=== PATIENT | female | born 2005 | race Caucasian/White ===

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

== ENCOUNTER → 2025-05-07 16:05 | Outpatient (CLI) | payer OTHER, SELFPAY | PROVIDERS: PCP Family Medicine; Visit Provider Chiropractor | DX: M54.50 Low back pain, unspecified (principal) | CPT/HCPCS: 87086 ==

== ENCOUNTER 2025-05-07 16:51 | Emergency (ER) | payer OTHER, SELFPAY ==
[2025-05-07] VITALS (18 sets, daily range): BP systolic 83–117; BP diastolic 49–75; PULSE 58–98; RESP 10–22; TEMP 36.9; O2SAT 96–100; BMI 19.7
--- NOTE | 2025-05-07 16:51 | EKG_ITS ---
[address] [address] [address], [place] [address] Test Date: 2025-05-07 Pat Name: Eleonora Figueredo Department: Room: Gender: Female Measurement Analyst: KAREN : 2005 Requested By: Order Number: [id number] Reading MD: Rommel Gooden Measurements Intervals [place] Rate: 67 P: 43 MO: 146 QRS: 81 QRSD: 82 T: 50 QT: 400 QTc: 422 Interpretive Statements Normal sinus rhythm Electronically Signed On 05-17-2025 13:43:29 PDT by Rommel Gooden
--- NOTE | 2025-05-07 16:51 | DI.RAD.S_ITS ---
PROCEDURE: XR CHEST 1V INDICATIONS: Chest Pain TECHNIQUE: One view of the chest was acquired. COMPARISON: None. FINDINGS: Surgical changes and devices: None. Lungs and pleura: Lungs are clear. No pleural effusions or pneumothorax. Mediastinum: Mediastinal contours appear normal. Heart size is normal. Bones and chest wall: No suspicious bony lesions. Overlying soft tissues appear unremarkable. IMPRESSION: No acute cardiopulmonary abnormality is seen. Dictated by: Nii Hamilton M.D. on 05/07/2025 at 16:35 Approved by: Nii Hamilton M.D. on 05/07/2025 at 16:35
[2025-05-07 17:11] LABS: Hematocrit 33.5 % (36-46); Hemoglobin 12.1 g/dL (12.0-16.0); Mean Corpuscular HGB Conc 36.0 % (30-36); Mean Corpuscular Hemoglobin 31.2 PG (26-34); Mean Corpuscular Volume 86.7 fL (80-100); Platelet Count 118 X10^3/uL (150-400)
[2025-05-07 17:13] LABS: Add Manual Diff / Slide Review YES
[2025-05-07] MEDS: ONDANSETRON 4 MG/2 ML INJ IV (17:15)
[2025-05-07 17:17] LABS: INR 1.3 (0.9-1.3); Prothrombin Time 14.3 SECONDS (9.4-12.5)
[2025-05-07 17:20] LABS: PTT Partial Thromboplastin Tim 30 SECONDS (25.1-36.5)
[2025-05-07 17:22] LABS: Alanine Aminotransferase 64 IU/L (<35); Albumin 3.6 g/dL (3.5-5.0); Albumin Globulin Ratio 1.4 (1.0-2.8); Alkaline Phosphatase 62 U/L (38-126); Blood Urea Nitrogen 10 mg/dL (7-17); Calcium 8.0 mg/dL (8.4-10.2); Carbon Dioxide 26 mmol/L (22-32); Chloride 106 mmol/L (98-107); Creatine Kinase 64 U/L (30-135); Estimated Glomerular Filt Rate > 60 mL/min (>60); Globulin 2.5 g/dL (1.7-4.1); Glucose 102 mg/dL (70-99); HEMOLYSIS < 15 (0-50); Lipase 37 U/L (23-300); Magnesium 1.9 mg/dL (1.6-2.3); Potassium 3.5 mmol/L (3.4-5.1); Sodium 137 mmol/L (137-145); Total Protein 6.1 g/dL (6.3-8.2)
[2025-05-07 17:28] LABS: Atypical Lymphocytes Percent 40.0 %; Band Neutrophils Percent 4.0 % (3-7); Basophils Percent Manual 1.0 % (0-1); Eosinophils Percent Manual 1.0 % (2-4); Lymphocytes Percent Manual 24.0 % (25-45); Monocytes Percent Manual 18.0 % (2-11); Neutrophils Absolute Manual 1776 /uL (3000-5900); Segmented Neutrophils Percent 12.0 % (38-70); Total Cells Counted 100
[2025-05-07 17:30] LABS: RBC Morphology Normal Morphology; Smudge Cells 2+
[2025-05-07 17:33] LABS: NT-proBNP (BNP-Adult 18+) 36 pg/mL (<125); Troponin I < 0.012 ng/mL (0.01-0.034)
--- NOTE | 2025-05-07 19:10 | PC.NURSE ---
Orthostatic vitals WNL. Pt reports feeling fine, no nausea noted.
--- NOTE | 2025-05-07 19:34 | ED_ITS ---
HPI - Syncope General Chief Complaint: Syncope Stated Complaint: Hypotension/Syncope Time Seen by Provider: 05/07/25 19:26 Source: patient and EMS Mode of arrival: EMS Limitations: no limitations History of Present Illness HPI narrative: 19-year-old female patient with a history of depression/anxiety and ADHD who was at the walk-in clinic today for having fever and decreased energy. Part of the workup revealed a ?UTI. ? However while she was there in waiting for results she became lightheaded and passed out briefly. No injury. Patient says she has had syncopal episodes several times in her life, up to 8 or 9. Sometimes this is when she has had her blood drawn or when she has been overheated. Currently feels slightly weak but otherwise no symptoms. She denies any URI or GI symptoms who she also had no bladder symptoms even though they did a urinalysis. Related Data Previous Rx's ?Medication ?Instructions ?Recorded dextroamphetamine-amphetamine ER 25 mg PO DAILY #30 ca ps 04/17/25 25 mg 24hr capsule,extend release escitalopram oxalate 20 mg tablet 20 mg PO DAILY #30 t abs 04/22/25 (Lexapro) Allergies Allergy/AdvReac Type Severity Reaction Status Date / Time milk (MILK) Allergy Mild Stomach Verified 05/07/25 16:06 ache and headache soy (SOY) Allergy Mild Stomach Verified 05/07/25 16:06 ache and headache Patient History Medical History (Updated 06/22/23 @ 13:22 by Vernell Guzmán MD) Attention deficit hyperactivity disorder (ADHD) Anxiety Social History (System 05/19/23 @ 14:43 by Shey Braxton) Smoking Status: Never smoker Smoking Status: Never smoker Exam Initial Vital Signs Initial Vital Signs: Vital Signs Temperature 98.4 F 05/07/25 16:56 Pulse Rate 63 05/07/25 16:56 Respiratory Rate 17 05/07/25 16:56 Blood Pressure 101/58 L 05/07/25 16:56 Pulse Oximetry 99 05/07/25 16:56 Oxygen Delivery Method Room Air 05/07/25 16:56 Course Orders Ordered: ED Orders 05/07/25 16:51 XR chest 1V Stat EKG-12 Lead Stat 05/07/25 17:00 Complete Blood Count AUTO DIFF Stat Comprehensive Metabolic Panel Stat Lipase Stat Magnesium Stat NT-proBNP (BNP-Adult 18+) Stat PTT Partial Thromboplastin Ramone Stat Pathologist Review (for CBC) Stat Prothrombin Time INR Stat Troponin & CK Cardiac Panel Stat 05/07/25 19:39 Urinalysis and Microscopic Stat Discontinued Medications Aspirin (Aspirin 81 Mg Chew Tab) 324 mg PO NOW ONE Stop: 05/07/25 16:52 Last Admin: 05/07/25 18:28 Dose: Not Given Documented By: Ondansetron HCl (Ondansetron 4 Mg/2 Ml Inj) 4 mg IV NOW ONE Stop: 05/07/25 17:13 Last Admin: 05/07/25 17:15 Dose: 4 mg Documented By: Vital Signs Vital signs: Vital Signs - 8 hr 05/07/25 16:56 05/07/25 17:00 05/07/25 17:01 Temperature 98.4 F Pulse Rate 63 66 Pulse Rate [Orthostatic Lying] Pulse Rate [Orthostatic Sitting] Pulse Rate [Orthostatic Standing] Respiratory Rate 17 15 Blood Pressure 101/58 L 101/58 L Blood Pressure [Orthostatic Lying] Blood Pressure [Orthostatic Sitting] Blood Pressure [Orthostatic Standing] Pulse Oximetry 99 Oxygen Delivery Method Room Air 05/07/25 17:01 05/07/25 17:08 05/07/25 17:08 Temperature Pulse Rate 65 66 Pulse Rate [Orthostatic Lying] Pulse Rate [Orthostatic Sitting] Pulse Rate [Orthostatic Standing] Respiratory Rate 10 L 11 L Blood Pressure 96/62 Blood Pressure [Orthostatic Lying] Blood Pressure [Orthostatic Sitting] Blood Pressure [Orthostatic Standing] Pulse Oximetry 100 Oxygen Delivery Method 05/07/25 17:11 05/07/25 17:11 05/07/25 17:19 Temperature Pulse Rate 58 L Pulse Rate [Orthostatic Lying] Pulse Rate [Orthostatic Sitting] Pulse Rate [Orthostatic Standing] Respiratory Rate 20 Blood Pressure 83/49 L 117/56 L Blood Pressure [Orthostatic Lying] Blood Pressure [Orthostatic Sitting] Blood Pressure [Orthostatic Standing] Pulse Oximetry 100 Oxygen Delivery Method 05/07/25 17:19 05/07/25 17:30 05/07/25 17:30 Temperature Pulse Rate 67 69 Pulse Rate [Orthostatic Lying] Pulse Rate [Orthostatic Sitting] Pulse Rate [Orthostatic Standing] Respiratory Rate 14 17 Blood Pressure 111/57 L Blood Pressure [Orthostatic Lying] Blood Pressure [Orthostatic Sitting] Blood Pressure [Orthostatic Standing] Pulse Oximetry 98 99 Oxygen Delivery Method Room Air 05/07/25 18:00 05/07/25 18:00 05/07/25 18:30 Temperature Pulse Rate 79 Pulse Rate [Orthostatic Lying] Pulse Rate [Orthostatic Sitting] Pulse Rate [Orthostatic Standing] Respiratory Rate 16 Blood Pressure 113/61 110/59 L Blood Pressure [Orthostatic Lying] Blood Pressure [Orthostatic Sitting] Blood Pressure [Orthostatic Standing] Pulse Oximetry 99 Oxygen Delivery Method 05/07/25 18:30 05/07/25 18:59 05/07/25 18:59 Temperature Pulse Rate 80 94 H Pulse Rate [Orthostatic Lying] Pulse Rate [Orthostatic Sitting] Pulse Rate [Orthostatic Standing] Respiratory Rate 19 20 Blood Pressure 107/61 Blood Pressure [Orthostatic Lying] Blood Pressure [Orthostatic Sitting] Blood Pressure [Orthostatic Standing] Pulse Oximetry 99 100 Oxygen Delivery Method 05/07/25 19:00 05/07/25 19:00 05/07/25 19:09 Temperature Pulse Rate 95 H Pulse Rate [Orthostatic Lying] 73 Pulse Rate [Orthostatic Sitting] 94 H Pulse Rate [Orthostatic Standing] 98 H Respiratory Rate 17 Blood Pressure 100/57 L Blood Pressure [Orthostatic Lying] 110/58 L Blood Pressure [Orthostatic Sitting] 107/59 L Blood Pressure [Orthostatic Standing] 100/56 L Pulse Oximetry 99 Oxygen Delivery Method 05/07/25 19:30 05/07/25 19:30 Temperature Pulse Rate 89 Pulse Rate [Orthostatic Lying] Pulse Rate [Orthostatic Sitting] Pulse Rate [Orthostatic Standing] Respiratory Rate 22 Blood Pressure 108/75 Blood Pressure [Orthostatic Lying] Blood Pressure [Orthostatic Sitting] Blood Pressure [Orthostatic Standing] Pulse Oximetry 99 Oxygen Delivery Method Room Air MDM - Syncope Lab Data 05/07/25 17:00 05/07/25 17:00 Labs: Lab Results 05/07/25 05/07/25 Range/Units 17:00 17:23 WBC 11.1 H (4.5-11.0) X10^3/uL RBC 3.87 L (4.0-5.2) X10^6/uL Hgb 12.1 (12.0-16.0) g/dL Hct 33.5 L (36-46) % MCV 86.7 (80-100) fL MCH 31.2 (26-34) PG MCHC 36.0 (30-36) % RDW 13.6 (11.6-14.8) % Plt Count 118 L (150-400) X10^3/uL Neut % (Auto) Not Reportable Lymph % (Auto) Not Reportable [place] % (Auto) Not Reportable Eos % (Auto) Not Reportable Baso % (Auto) Not Reportable Lymph # (Auto) Not Reportable [place] # (Auto) Not Reportable Baso # (Auto) Not Reportable Total Counted 100 Seg Neutrophils % 12.0 L (38-70) % Band Neutrophils % 4.0 (3-7) % Lymphocytes % (Manual) 24.0 L (25-45) % Atypical Lymphs % 40.0 H ( - 0) % Monocytes % (Manual) 18.0 H (2-11) % Eosinophils % (Manual) 1.0 L (2-4) % Basophils % (Manual) 1.0 (0-1) % Neutrophils # (Manual) 1776 L (0541-7477) /uL Smudge Cells 2+ H RBC Morphology Normal morphology PT 14.3 H (9.4-12.5) SECONDS INR 1.3 (0.9-1.3) APTT 30 (25.1-36.5) SECONDS Sodium 137 (137-145) mmol/L Potassium 3.5 (3.4-5.1) mmol/L Chloride 106 (98-107) mmol/L Carbon Dioxide 26 (22-32) mmol/L BUN 10 (7-17) mg/dL Creatinine 0.73 (0.52-1.04) mg/dL Estimated GFR > 60 (>60) mL/min BUN/Creatinine Ratio 13.7 (6-22) Glucose 102 H (70-99) mg/dL POC Whole Bld Glucose 91 (70-99) mg/dL Calcium 8.0 L (8.4-10.2) mg/dL Magnesium 1.9 (1.6-2.3) mg/dL Total Bilirubin 0.7 (0.2-1.3) mg/dL AST 63 H (14-36) IU/L ALT 64 H (<35) IU/L Alkaline Phosphatase 62 (38-126) U/L Total Creatine Kinase 64 (30-135) U/L Troponin I < 0.012 (0.01-0.034) ng/mL NT-Pro-B Natriuret Pep 36 (<125) pg/mL Total Protein 6.1 L (6.3-8.2) g/dL Albumin 3.6 (3.5-5.0) g/dL Globulin 2.5 (1.7-4.1) g/dL Albumin/Globulin Ratio 1.4 (1.0-2.8) Lipase 37 (23-300) U/L Point of Care Testing Glucose POC 91 Discharge Plan Departure Prescriptions: No Action dextroamphetamine-amphetamine 25 mg capsule,extended release 24hr 25 mg PO DAILY Qty: 30 0RF escitalopram oxalate [Lexapro] 20 mg tablet 20 mg PO DAILY Qty: 30 0RF Referrals: Vernell Guzmán MD [Primary Care Provider, Family Practice]
--- NOTE | 2025-05-07 19:42 | ED_ITS ---
HPI - Syncope General Chief Complaint: Syncope Stated Complaint: Hypotension/Syncope Time Seen by Provider: 05/07/25 19:26 Source: patient and EMS Mode of arrival: EMS Limitations: no limitations History of Present Illness HPI narrative: 19-year-old female patient with history of anxiety and ADHD who was at the walk- in clinic today being seen for fevers and was sitting in a chair and became lightheaded and then briefly passed out. No injury. She feels better now but slightly weak. She had no other complaint other than fevers over the last 2 days. She was told she had a UTI based on the test dated. She has had no bladder symptoms. No URI symptoms or gastrointestinal symptoms. Patient has had a few syncopal episodes in the past associated with having her blood drawn and being overheated. Related Data Previous Rx's ?Medication ?Instructions ?Recorded dextroamphetamine-amphetamine ER 25 mg PO DAILY #30 ca ps 04/17/25 25 mg 24hr capsule,extend release escitalopram oxalate 20 mg tablet 20 mg PO DAILY #30 t abs 04/22/25 (Lexapro) Allergies Allergy/AdvReac Type Severity Reaction Status Date / Time milk (MILK) Allergy Mild Stomach Verified 05/07/25 16:06 ache and headache soy (SOY) Allergy Mild Stomach Verified 05/07/25 16:06 ache and headache Review of Systems Review of Systems ROS Unobtainable: All systems reviewed & are unremarkable except as noted in HPI and below Patient History Medical History (Updated 05/07/25 @ 21:45 by Eddie Arriaga MD) Attention deficit hyperactivity disorder (ADHD) Anxiety Social History (System 05/19/23 @ 14:43 by Shey Braxton) Smoking Status: Never smoker Smoking Status: Never smoker Exam Initial Vital Signs Initial Vital Signs: Vital Signs Temperature 98.4 F 05/07/25 16:56 Pulse Rate 63 05/07/25 16:56 Respiratory Rate 17 05/07/25 16:56 Blood Pressure 101/58 L 05/07/25 16:56 Pulse Oximetry 99 05/07/25 16:56 Oxygen Delivery Method Room Air 05/07/25 16:56 Const General: cooperative, healthy appearing, comfortable and No acute distress HENMT Head: normal to inspection and normocephalic Eyes Pupils: PERRL EOM: EOM intact bilaterally Neck Neck: normal visual inspection and full ROM Chest Chest: normal inspection of the chest and normal palpation of entire chest wall Resp Effort & Inspection: normal respiratory effort, able to speak in complete sentences and no respiratory distress Auscultation: clear to auscultation bilaterally Cardio Rate: regular rate Rhythm: regular rhythm GI Inspection: normal to inspection Palpation: soft and No tender Course Orders Ordered: ED Orders 05/07/25 20:45 Ictotest Urine Stat Urinalysis and Microscopic Stat Discontinued Medications Aspirin (Aspirin 81 Mg Chew Tab) 324 mg PO NOW ONE Stop: 05/07/25 16:52 Last Admin: 05/07/25 18:28 Dose: Not Given Documented By: Ondansetron HCl (Ondansetron 4 Mg/2 Ml Inj) 4 mg IV NOW ONE Stop: 05/07/25 17:13 Last Admin: 05/07/25 17:15 Dose: 4 mg Documented By: Vital Signs Vital signs: Vital Signs - 8 hr 05/07/25 18:59 05/07/25 18:59 05/07/25 19:00 Pulse Rate 94 H Pulse Rate [Orthostatic Lying] Pulse Rate [Orthostatic Sitting] Pulse Rate [Orthostatic Standing] Respiratory Rate 20 Blood Pressure 107/61 100/57 L Blood Pressure [Orthostatic Lying] Blood Pressure [Orthostatic Sitting] Blood Pressure [Orthostatic Standing] Pulse Oximetry 100 Oxygen Delivery Method 05/07/25 19:00 05/07/25 19:09 05/07/25 19:30 Pulse Rate 95 H Pulse Rate [Orthostatic Lying] 73 Pulse Rate [Orthostatic Sitting] 94 H Pulse Rate [Orthostatic Standing] 98 H Respiratory Rate 17 Blood Pressure 108/75 Blood Pressure [Orthostatic Lying] 110/58 L Blood Pressure [Orthostatic Sitting] 107/59 L Blood Pressure [Orthostatic Standing] 100/56 L Pulse Oximetry 99 Oxygen Delivery Method 05/07/25 19:30 05/07/25 20:01 05/07/25 20:30 Pulse Rate 89 Pulse Rate [Orthostatic Lying] Pulse Rate [Orthostatic Sitting] Pulse Rate [Orthostatic Standing] Respiratory Rate 22 Blood Pressure 107/57 L Blood Pressure [Orthostatic Lying] Blood Pressure [Orthostatic Sitting] Blood Pressure [Orthostatic Standing] Pulse Oximetry 99 96 Oxygen Delivery Method Room Air 05/07/25 20:30 05/07/25 21:00 05/07/25 21:00 Pulse Rate 80 80 Pulse Rate [Orthostatic Lying] Pulse Rate [Orthostatic Sitting] Pulse Rate [Orthostatic Standing] Respiratory Rate 18 19 Blood Pressure 107/59 L Blood Pressure [Orthostatic Lying] Blood Pressure [Orthostatic Sitting] Blood Pressure [Orthostatic Standing] Pulse Oximetry 100 98 Oxygen Delivery Method Room Air 05/07/25 21:30 05/07/25 21:30 05/07/25 21:53 Pulse Rate 77 69 Pulse Rate [Orthostatic Lying] Pulse Rate [Orthostatic Sitting] Pulse Rate [Orthostatic Standing] Respiratory Rate 17 16 Blood Pressure 96/53 L 98/53 L Blood Pressure [Orthostatic Lying] Blood Pressure [Orthostatic Sitting] Blood Pressure [Orthostatic Standing] Pulse Oximetry 98 98 Oxygen Delivery Method Room Air MDM - Syncope Lab Data Attestation: I reviewed the patient's lab results. Lab results narrative: CBC and chemistry panel unremarkable. Full urinalysis is not consistent with UTI. 05/07/25 17:00 05/07/25 17:00 Labs: Lab Results 05/07/25 05/07/25 05/07/25 Range/Units 17:00 17:23 20:45 WBC 11.1 H (4.5-11.0) X10^3/uL RBC 3.87 L (4.0-5.2) X10^6/uL Hgb 12.1 (12.0-16.0) g/dL Hct 33.5 L (36-46) % MCV 86.7 (80-100) fL MCH 31.2 (26-34) PG MCHC 36.0 (30-36) % RDW 13.6 (11.6-14.8) % Plt Count 118 L (150-400) X10^3/uL Neut % (Auto) Not Reportable Lymph % (Auto) Not Reportable [place] % (Auto) Not Reportable Eos % (Auto) Not Reportable Baso % (Auto) Not Reportable Lymph # (Auto) Not Reportable [place] # (Auto) Not Reportable Baso # (Auto) Not Reportable Total Counted 100 Seg Neutrophils % 12.0 L (38-70) % Band Neutrophils % 4.0 (3-7) % Lymphocytes % (Manual) 24.0 L (25-45) % Atypical Lymphs % 40.0 H ( - 0) % Monocytes % (Manual) 18.0 H (2-11) % Eosinophils % (Manual) 1.0 L (2-4) % Basophils % (Manual) 1.0 (0-1) % Neutrophils # (Manual) 1776 L (3064-1839) /uL Sm[place] Cells 2+ H RBC Morphology Normal morphology PT 14.3 H (9.4-12.5) SECONDS INR 1.3 (0.9-1.3) APTT 30 (25.1-36.5) SECONDS Sodium 137 (137-145) mmol/L Potassium 3.5 (3.4-5.1) mmol/L Chloride 106 (98-107) mmol/L Carbon Dioxide 26 (22-32) mmol/L BUN 10 (7-17) mg/dL Creatinine 0.73 (0.52-1.04) mg/dL Estimated GFR > 60 (>60) mL/min BUN/Creatinine Ratio 13.7 (6-22) Glucose 102 H (70-99) mg/dL POC Whole Bld Glucose 91 (70-99) mg/dL Calcium 8.0 L (8.4-10.2) mg/dL Magnesium 1.9 (1.6-2.3) mg/dL Total Bilirubin 0.7 (0.2-1.3) mg/dL AST 63 H (14-36) IU/L ALT 64 H (<35) IU/L Alkaline Phosphatase 62 (38-126) U/L Total Creatine Kinase 64 (30-135) U/L Troponin I < 0.012 (0.01-0.034) ng/mL NT-Pro-B Natriuret Pep 36 (<125) pg/mL Total Protein 6.1 L (6.3-8.2) g/dL Albumin 3.6 (3.5-5.0) g/dL Globulin 2.5 (1.7-4.1) g/dL Albumin/Globulin Ratio 1.4 (1.0-2.8) Lipase 37 (23-300) U/L Urine Color Yellow Urine Appearance Clear Urine pH 7.0 (4.5-8.0) Ur Specific [place] 1.015 (1.000-1.035) Urine Protein 1+ H (Negative) Urine Glucose (UA) Negative (Negative) g/dL Urine Ketones 3+ H (NEGATIVE) Urine Occult Blood Trace-intact (Negative) Urine Nitrate Negative (Negative) Urine Bilirubin 1+ H (NEGATIVE) Ur Bilirubin Confirm Negative (Negative) Urine Urobilinogen 4.0 H (0.2) E.U./dL Ur Leukocyte Esterase Negative (NEGATIVE) Urine RBC 0-1/hpf (0-5/HPF) Urine WBC 0-1/hpf (0-5/HPF) Ur Squamous Epith Cells 10-30 /hpf H (0-5/HPF) Urine Bacteria Few (2-10) H (None) Urine Mucus 1+ H (Negative) Ur Culture Indicated? Cult not indicated Vol Urine Centrifuged 10ml (spun) Point of Care Testing Glucose POC 91 MDM Narrative Medical decision making narrative: Patient had a brief syncopal episode in the doctor's office which is probably vasovagal syncope with no injury. She also has had a fever with no other symptoms which is probably a viral illness. Urinalysis with microscopic here in the ER is negative for UTI. Plan is hydration, rest and supportive care with [id number] medicines needed for fever or other symptoms of viral illness. Follow up with her doctor within the next week to 10 days regarding syncopal episodes and further workup that might be needed such as Cardiology referral. Discharge Plan Departure Patient Disposition: Home Clinical Impression: Vasovagal syncope, Viral illness Instructions: DI for Syncope in Adults (Fainting) Activity Restrictions/Additional Instructions: Assessment: 1. Probable vasovagal syncope 2. Probable viral illness with fever but no other symptoms. Does not appear to be UTI based on urinalysis in the ER. Lab work otherwise unremarkable and reassuring. Plan: Hydration, rest and supportive care with [id number] medicine as needed for symptoms such as ibuprofen and Tylenol for fever. Follow up with your doctor regarding syncopal episode along with previous syncopal episodes. May need further workup including possible cardiology consult. Return to the ER if worse Prescriptions: No Action dextroamphetamine-amphetamine 25 mg capsule,extended release 24hr 25 mg PO DAILY Qty: 30 0RF escitalopram oxalate [Lexapro] 20 mg tablet 20 mg PO DAILY Qty: 30 0RF Referrals: Vernell Guzmán MD [Primary Care Provider, [facility]] Stand Alone Forms: Patient Portal/API
--- NOTE | 2025-05-07 21:09 | PC.NURSE ---
Pt ambulatory to BR. Steady gait noted. Denies dizziness or feeling lightheaded. Urine sample obtained and sent to lab.
[2025-05-07 21:15] LABS: Appearance Urine UA CLEAR; Bilirubin Urine UA 1+ (NEGATIVE); Color Urine UA YELLOW; Glucose Urine UA NEGATIVE (Negative); Ketones Urine UA 3+ (NEGATIVE); Leukocyte Esterase Urine UA NEGATIVE (NEGATIVE); Nitrite Urine UA NEGATIVE (Negative); Occult Blood Urine UA TRACE-INTACT (Negative); Protein Urine UA 1+ (Negative); Specific Gravity Urine UA 1.015 (1.000-1.035); Urobilinogen Urine UA 4.0 E.U./dL (0.2)
[2025-05-07 21:25] LABS: Ictotest Urine Negative (Negative); pH Urine UA 7.0 (4.5-8.0)
[2025-05-07 21:26] LABS: Culture Indicated Urine Cult Not Indicated
== END 2025-05-07 21:55 | disposition home or self-care (01) ==
PROVIDERS: Emergency Medicine; Emergency Provider Emergency Medicine; PCP Family Medicine
DX: R55 Syncope and collapse (principal); B34.9 Viral infection, unspecified
CPT/HCPCS: 71045; 80053; 81001; 82550; 82962; 83690; 83735; 83880; 84484; 85007; 85025; 85610; 85730; 87086; 93005; 96374; 99284; J2405

== ENCOUNTER → 2025-05-15 14:54 | Outpatient (CLI) | payer OTHER, SELFPAY ==
[2025-05-15 15:25] LABS: Hematocrit 36.8 % (36-46); Hemoglobin 12.7 g/dL (12.0-16.0); Mean Corpuscular HGB Conc 34.5 % (30-36); Mean Corpuscular Hemoglobin 30.5 PG (26-34); Mean Corpuscular Volume 88.4 fL (80-100); Platelet Count 199 X10^3/uL (150-400)
[2025-05-15 15:39] LABS: Add Manual Diff / Slide Review YES
[2025-05-15 15:49] LABS: Alanine Aminotransferase 186 IU/L (<35); Albumin 4.2 g/dL (3.5-5.0); Albumin Globulin Ratio 1.4 (1.0-2.8); Alkaline Phosphatase 116 U/L (38-126); Blood Urea Nitrogen 7 mg/dL (7-17); Calcium 9.0 mg/dL (8.4-10.2); Carbon Dioxide 30 mmol/L (22-32); Chloride 99 mmol/L (98-107); Estimated Glomerular Filt Rate > 60 mL/min (>60); Globulin 3.1 g/dL (1.7-4.1); Glucose 93 mg/dL (70-99); HEMOLYSIS < 15 (0-50); Potassium 4.2 mmol/L (3.4-5.1); Sodium 139 mmol/L (137-145); Total Protein 7.3 g/dL (6.3-8.2)
[2025-05-15 16:02] LABS: Basophils Percent Manual 1.0 % (0-1); Eosinophils Percent Manual 3.0 % (2-4); Lymphocytes Percent Manual 53.0 % (25-45); Monocytes Percent Manual 13.0 % (2-11); Neutrophils Absolute Manual 4350 /uL (3000-5900); Segmented Neutrophils Percent 30.0 % (38-70); Total Cells Counted 100
[2025-05-15 16:03] LABS: Anisocytosis 2+; Smudge Cells 1+
[2025-05-15 16:04] LABS: Polychromasia 1+
[2025-05-17 09:39] LABS: EBV Virus IgG Ab 27.7 U/mL (0.0-17.9); EBV Virus IgM Ab > 160.0 U/mL (0.0-35.9)
== END ==
PROVIDERS: PCP Family Medicine; Referring Provider Family Medicine; Visit Provider Family Medicine
DX: R50.9 Fever, unspecified (principal)
CPT/HCPCS: 36415; 80053; 85007; 85025; 86665